=== PATIENT | male | born 1940 | race Caucasian/White ===

== ENCOUNTER 2017-02-01 21:28 | Emergency (ER) | payer MEDICARE, OTHER | END 2017-02-01 23:33 | disposition home or self-care (01) | LOC: ER 21:28 | DX: K74.60 Unspecified cirrhosis of liver (principal); R18.8 Other ascites; K76.6 Portal hypertension; E11.9 Type 2 diabetes mellitus without complications; I10 Essential (primary) hypertension; E66.9 Obesity, unspecified | CPT/HCPCS: 36415; 96361; 96374; 96375; J2765 ==